=== PATIENT | female | born 1985 | race Caucasian/White ===

== ENCOUNTER 2021-01-31 13:22 | Outpatient (CLI) | payer BC | END 2021-01-31 13:23 | disposition home or self-care (01) | LOC: CSHULT 13:22 | PROVIDERS: ATTEND Family Medicine | DX: R10.2 Pelvic and perineal pain (principal); R97.1 Elevated cancer antigen 125 [CA 125]; N85.8 Other specified noninflammatory disorders of uterus | CPT/HCPCS: 76856 ==

== ENCOUNTER 2021-12-12 07:43 | Outpatient (CLI) | payer BC | END 2021-12-12 07:44 | disposition home or self-care (01) | LOC: CSHULT 07:43 | PROVIDERS: ATTEND Family Medicine | DX: R10.2 Pelvic and perineal pain (principal); R97.1 Elevated cancer antigen 125 [CA 125]; D25.9 Leiomyoma of uterus, unspecified; N83.202 Unspecified ovarian cyst, left side; Z87.42 Personal history of other diseases of the female genital tract | CPT/HCPCS: 76856 ==